=== PATIENT | female | born 1945 | race Caucasian/White ===

== ENCOUNTER → 2018-04-06 12:14 | Outpatient (CLI) | payer MEDICARE, OTHER, SELFPAY ==
--- NOTE | 2018-04-06 | DI.MRI.S_ITS ---
PROCEDURE: MR LUMBAR SPINE WO CON INDICATIONS: LUMBAR SPINE PAIN TECHNIQUE: Noncontrast sagittal T1 spin echo and T2 fast echo, coronal T2, sagittal STIR, axial T1 and T2 fast spin echo through the lumbar spine. COMPARISON: [facility], MR, L-SPINE WITHOUT CONTRAST, 11/24/2014, 16:58. [facility], CR, XR LUMBAR SPINE WITH OLBIQUES PLUS FLEXION EXTENSION, 03/23/2018, 11:05. FINDINGS: Image quality: Excellent. Alignment and Curvature: 5 lumbar type vertebral bodies are present by plain film. Moderate leftward curvature of the spine at the thoracolumbar junction. Bone Marrow: Marrow is of normal overall signal. No acute vertebral body compression fractures. There is mild reactive signal within the endplates adjacent to the T11-T12, T12-L1, and L1-L2 intervertebral discs. Spinal Cord: Conus medullaris terminates at the mid L1 level. Visualized cord demonstrates normal signal and size. Paraspinous Soft Tissues: No paravertebral masses. L1-L2: Disc height loss and desiccation, as well as diffuse disc bulge, with superimposed right far lateral protrusion. Bilateral facet hypertrophy. Mild canal stenosis. Mild bilateral foraminal stenosis. No change. L2-L3: Mild disc desiccation and diffuse disc bulge. Bilateral facet hypertrophy. No significant canal stenosis. Mild left foraminal stenosis. No right foraminal stenosis. No change. L3-L4: Disc desiccation and diffuse disc bulge. Bilateral facet hypertrophy. Mild canal stenosis. Mild bilateral foraminal stenosis. No change. L4-L5: Disc desiccation and diffuse disc bulge with new superimposed left far lateral protrusion. Bilateral facet and ligamentum flavum hypertrophy. Increased, moderate canal stenosis. Increased, moderate left and mild right foraminal stenoses. L5-S1: Disc desiccation and diffuse disc bulge. Bilateral facet hypertrophy. Mild canal stenosis. Mild bilateral foraminal stenosis. No change. IMPRESSION: 1. Multilevel degenerative disc and facet disease, as well as ligamentum flavum hypertrophy. 2. Increased, moderate canal stenosis at L4-L5. Increased, moderate left and mild right foraminal stenosis L4-L5. 3. Otherwise, no change in mild canal and foraminal stenoses compared to ..15. Dictated by: Tyler Inman M.D. on 04/06/2018 at 15:00 Approved by: Tyler Inman M.D. on 04/06/2018 at 15:10
== END ==
PROVIDERS: PCP Specialist; Visit Provider Physical Medicine & Rehabilitation
DX: M51.36 Other intervertebral disc degeneration, lumbar region (principal); M47.816 Spondylosis without myelopathy or radiculopathy, lumbar region; M48.061 Spinal stenosis, lumbar region without neurogenic claudication
CPT/HCPCS: 72148

== ENCOUNTER → 2019-03-10 08:55 | Outpatient (CLI) | payer MEDICARE, OTHER, SELFPAY ==
--- NOTE | 2019-03-10 | DI.ECHO.S_ITS ---
[facility]---------+ [facility] +---------+ : : [address] : : : : [id number] : : : : Phone: [phone]+ Echocardiogram Report + + :Name: FORTUNATO ARRIAZA Study Date: 03/10/2019 Height: 63 in : :[facility] Exam Location: IS Weight: 178 lb : : Gender: Female BSA: 1.8 m2 : :: 1945 Age: 73 yrs BP: 125/78 mmHg: :Reason For Study: DYSPNEA : : Performed By: Rambo Ribera : :Referring: KAROLINE MALLORY : + + Interpretation Summary The patient was in atrial fibrillation with a HR of 79-105 bpm. The left ventricular ejection fraction is normal. Right ventricular systolic function is at the lower limits of normal. Both atria are severely dilated. There is mild mitral regurgitation. The right ventricular systolic pressure is estimated to be at least 27 mmHg based on an estimated right atrial pressure of 3 mm Hg. Comparison is made with the echocardiogram of 01/23/18. The RV appears more dilated. Otherwise no significant change. Procedure: A two-dimensional transthoracic echocardiogram with color flow and Doppler was performed. The study quality was technically adequate. Comparison is made with the echocardiogram of 01/23/18. The patient was in atrial fibrillation with controlled ventricular rate during the exam. The patient had a heart rate of 79-105 beats per minute. Left Ventricle: The left ventricle is normal in size. There is normal left ventricular wall thickness. The ejection fraction is estimated to be 55-60%. The left ventricular ejection fraction is normal. There are no focal wall motion abnormalities. Diastolic function could not be accurately assessed due to atrial fibrillation. Right Ventricle: The right ventricle is mildly dilated. Right ventricular systolic function is at the lower limits of normal. TAPSE 1.6 cm. Atria: Both atria are severely dilated. There is no Doppler evidence for an interatrial shunt. Mitral Valve: The mitral valve is normal in structure and function. There is mild mitral annular calcification. There is mild mitral regurgitation. Aortic Valve: The aortic valve is trileaflet. The aortic valve opens well. There is no aortic valve stenosis. No aortic regurgitation is present. Tricuspid Valve: The tricuspid valve is normal in structure and function. There is mild to moderate tricuspid regurgitation. The right ventricular systolic pressure is estimated to be at least 27 mmHg based on an estimated right atrial pressure of 3 mm Hg. Pulmonic Valve: The pulmonic valve is not well seen, but is grossly normal. There is trace pulmonic regurgitation. Great Vessels: The aortic root is normal size. The ascending aorta is mildly enlarged. The pulmonary artery is normal size. The IVC is of normal diameter and collapses greater than 50% with a sniff. This suggests a low right atrial pressure of 3 mm Hg. Pericardium/ Pleura There is no pericardial effusion. There is no pleural effusion. MMode/2D Measurements & Calculations LVIDd: 5.5 cm LVOT diam: 2.3 cm LVIDs: 3.6 cm Ao root diam: 3.8 cm FS: 34.3 % Aortic Jxn: 2.9 cm EPSS: 0.71 cm asc Aorta Diam: 3.5 cm IVSd: 0.95 cm LVPWd: 1.00 cm LV wood. diameter/BSA (cm/m^2): 3.0 LV sys. diameter/BSA (cm/m^2): 2.0 LA dimension: 4.9 cm RA long axis: 6.6 cm LA A2 area: 37.9 cm2 RA area: 27.1 cm2 LA A4 area: 40.7 cm2 RA vol: 94.3 ml LA length (vol): 7.1 cm RA : 51.2 ml/m2 LA vol: 185.6 ml IVC diam: 2.0 cm LA vol index: 100.9 ml/m2 RVD1 (basal): 4.7 cm RVD2 (mid): 4.0 cm Doppler Measurements & Calculations Ao V2 max: 116.3 cm/sec LVOT Max Bonilla: 76.1 cm/sec Ao V2 mean: 89.6 cm/sec LV V1 max P.3 mmHg Ao max P.4 mmHg LV V1 VTI: 15.8 cm Ao mean P.4 mmHg SHAWNA(I,D): 3.1 cm2 Ao V2 VTI: 21.0 cm SHAWNA(V,D): 2.7 cm2 sev ratio: 0.75 SHAWNA indexed to BSA (cm^2/m^2): 1.7 MV E max bonilla: 90.1 cm/sec TR max bonilla: 245.6 cm/sec MV A max bonilla: 0.89 cm/sec TR max P.1 mmHg MV E/A: 101.6 PA V2 max: 61.8 cm/sec Med Peak E' Bonilla: 6.0 cm/sec PA V2 mean: 45.6 cm/sec E/E' med: 15.1 PA mean P.90 mmHg Lat Peak E' Bonilla: 10.2 cm/sec PA pr(Accel): 19.1 mmHg E/E' lat: 8.9 PA Accel Time: 0.13 sec E/e' average: 12.0 MV dec time: 0.09 sec SV(OT): 65.5 ml Electronically signed by: Amol Sylvester M.D. on Reading Physician:03/10/2019 06:48 PM
== END ==
PROVIDERS: PCP Specialist; Visit Provider Physician Assistant
DX: I08.1 Rheumatic disorders of both mitral and tricuspid valves (principal); R06.09 Other forms of dyspnea; I48.91 Unspecified atrial fibrillation
CPT/HCPCS: 93306

== ENCOUNTER → 2021-07-09 11:49 | Outpatient (CLI) | payer MEDICARE, OTHER, SELFPAY ==
--- NOTE | 2021-07-09 11:52 | DI.CT.S_ITS ---
PROCEDURE: CT HEAD/BRAIN WO CON INDICATIONS: Other abnormalities of gait and mobility TECHNIQUE: Noncontrast 4.5 mm thick angled axial sections acquired from the foramen magnum to the vertex, with coronal and sagittal reformats. For radiation dose reduction, the following was used: automated exposure control, adjustment of mA and/or kV according to patient size. COMPARISON: None. FINDINGS: Image quality: Excellent. CSF spaces: Basal cisterns are patent. No extra-axial fluid collections. Ventricles are normal in size and shape. Brain: No midline shift. No intracranial masses or hemorrhage. Heredia-white matter interface is normal. Skull and face: Calvarium and visualized facial bones are intact, without suspicious lesions. Sinuses: Visualized sinuses and mastoids are clear. IMPRESSION: No acute intracranial abnormality. Dictated by: Isaak Pardo M.D. on 07/09/2021 at 13:01 Approved by: Isaak Pardo M.D. on 07/09/2021 at 13:04
== END ==
PROVIDERS: PCP Family Medicine; Referring Provider Family Medicine; Visit Provider Family Medicine
DX: R41.0 Disorientation, unspecified (principal); R26.89 Other abnormalities of gait and mobility
CPT/HCPCS: 70450

== ENCOUNTER → 2021-07-12 10:29 | Outpatient (CLI) | payer MEDICARE, OTHER, SELFPAY ==
[2021-07-12 11:24] LABS: Blood Urea Nitrogen 16 mg/dL (7-17); Estimated Glomerular Filt Rate > 60.0 mL/min (>60)
--- NOTE | 2021-07-12 11:30 | DI.CT.S_ITS ---
PROCEDURE: CT CHEST W CON INDICATIONS: Lobar pneumonia, unspecified organism TECHNIQUE: After the administration of intravenous contrast, 5 mm thick sections acquired from the pulmonary apices to the posterior costophrenic angles. 1 mm axial lung, 5 mm thick coronal and sagittal reformats and 7 mm axial MIP were acquired. For radiation dose reduction, the following was used: automated exposure control, adjustment of mA and/or kV according to patient size. COMPARISON: [facility], CR, XR CHEST 2 VIEWS, 01/22/2018, 14:33. FINDINGS: Image quality: Excellent. Lungs and pleura: Platelike consolidation in the left upper lobe, (3/90). Minimal bibasilar atelectasis. Airways are clear. No pleural effusions or pneumothorax. Mediastinum: Heart size is normal. Mild coronary artery calcifications. No pericardial effusion. No mediastinal or hilar adenopathy by size criteria. Thoracic aorta and central pulmonary arteries are normal in size. Moderate aortic arch plaque. Esophagus is normal in caliber. Moderate hiatal hernia. Bones and chest wall: No suspicious bony lesions. No vertebral body compression fractures. Scoliosis. Multilevel intervertebral disc space height loss. No axillary or supraclavicular adenopathy by size criteria. Bilateral breast implants. Thyroid gland is unremarkable. Abdomen: Suspect gastric bypass. Visualized upper abdominal solid organs appear normal. Upper abdominal bowel loops are normal in caliber. IMPRESSION: 1. Small platelike consolidation in the left upper lobe. This is suspicious for pneumonia. Recommend follow-up to resolution. 2. Moderate hiatal hernia. 3. No pleural effusion. Dictated by: Henry Nick M.D. on 07/12/2021 at 12:30 Approved by: Henry Nick M.D. on 07/12/2021 at 12:37
== END ==
PROVIDERS: PCP Family Medicine; Referring Provider Family Medicine; Visit Provider Family Medicine
DX: J18.1 Lobar pneumonia, unspecified organism (principal); K44.9 Diaphragmatic hernia without obstruction or gangrene
CPT/HCPCS: 36415; 71260; 82565; 84520; Q9967

== ENCOUNTER → 2021-11-08 10:43 | Outpatient (CLI) | payer MEDICARE, OTHER, SELFPAY ==
[2021-11-08 12:54] LABS: COVID19 -Nasal RAPID Negative (Negative)
== END ==
PROVIDERS: PCP Family Medicine; Visit Provider Family Medicine Sleep Medicine
DX: Z20.822 Contact with and (suspected) exposure to COVID-19 (principal)
CPT/HCPCS: 87635; C9803

== ENCOUNTER → 2021-11-11 09:26 | Outpatient (CLI) | payer MEDICARE, OTHER, SELFPAY ==
[2021-11-11 11:55] LABS: NT-proBNP (BNP-Adult 18+) 2250 pg/mL (<450)
--- NOTE | 2021-11-11 15:09 | PM.TREADMILL ---
Cardiac Stress Test Report Referral & Results Date Patient Seen: 11/11/21 Time Patient Seen: 15:10 Requesting provider: Chad Bustamante Indication: dyspnea Rest ECG: Atrial fibrillation with nonspecific ST changes in inferior lateral leads Procedure Note: After Lexiscan injection had minimal dyspnea and no chest discomfort No significant ST changes after Lexiscan injection Rare PVC Impression: Normal Lexiscan stress test Nuclear images pending Please note: Actual ECG tracings can be found in the PACS system.
--- NOTE | 2021-11-11 18:44 | DI.NM.S_ITS ---
DATE OF SERVICE: 11/11/2021 PROCEDURE PERFORMED: Pharmacologic vasodilator stress and rest myocardial perfusion imaging with gating to assess ejection fraction and regional wall motion. ORDERING PROVIDER: Dr. Chad Bustamante. INDICATIONS: The patient is a 76-year-old female with chronic atrial fibrillation, exertional dyspnea, and intermittent chest pressure. CARDIAC STRESS: Per protocol, 0.4 mg of regadenoson was infused with a normal hemodynamic response with the patient achieving a maximum heart rate of 128 BPM (90% of her predicted maximum). She had minimal dyspnea but no chest discomfort. Her resting ECG shows atrial fibrillation with nonspecific ST- segment abnormalities that remain unchanged with stress. She had occasional isolated PVCs with stress but no complex ventricular ectopy. Per protocol, 25.7 millicuries of technetium-99m Myoview was injected. She was imaged 20 minutes later using a gated SPECT acquisition protocol. Earlier in the day while at rest, she had been injected with 11.5 millicuries of technetium- 99m Myoview and was imaged 30 minutes later, again using a gated SPECT acquisition protocol. FINDINGS: 1. Raw data: There is fair myocardial tracer uptake with moderate breast shadows noted. The patient was unable to lie prone. Her lung/heart ratio was normal at 0.30 with a normal TID ratio 0.98. 2. Quantitated gated SPECT: Post-stress ejection fraction is estimated at 66% without any focal wall motion abnormality and specifically the distal anterior wall and apex appear to have normal contractility. The resting ejection fraction is estimated also to be 66% with a similar contraction pattern. Resting end- diastolic volume is at the upper limits of normal at 121 mL. 3. Myocardial perfusion imaging: The post-stress supine images shows a fairly normal myocardial perfusion pattern although with a mild defect in the distal anterior wall and anterior septum extending to, but not including, the apex in a pattern that would be consistent with breast attenuation artifact. Unfortunately, there are no prone images to assess for this. The resting images show an identical perfusion pattern with no improvement in the anterior and anteroseptal defect. IMPRESSION: 1. Probable normal myocardial perfusion study. 2. Relatively small, mild, fixed perfusion defect in the distal anterior wall and anterior septum, most likely reflecting breast attenuation artifact. While a previous nontransmural infarction cannot be entirely excluded, the absence of any wall motion abnormality in this area would mitigate against this. There is no reversibility to suggest any myocardial ischemia. 3. Normal left ventricular systolic function without any focal wall motion abnormality and borderline increased left ventricular volumes. 4. No angina or ECG evidence of ischemia with pharmacologic vasodilator stress. She had atrial fibrillation with occasional PVCs, but no concerning complex ventricular ectopy. Mayra Frias - JOSIAS/bob/manjinder doc#: [id number]/job#: [id number] dd: 11/11/2021 16:17:00 dt: 11/11/2021 18:33:00 DICTATING MD/COPIES TO: Jacky Guzman MD; Chad Bustamante MD COPIES MNE: VIKA;
== END ==
PROVIDERS: PCP Family Medicine; Referring Provider Internal Medicine Cardiovascular Disease; Visit Provider Internal Medicine Cardiovascular Disease
DX: R06.00 Dyspnea, unspecified (principal); I48.21 Permanent atrial fibrillation
CPT/HCPCS: 36415; 78452; 83880; 93017; A9502; J2785